=== PATIENT | female | born 1970 | race Caucasian/White ===

== ENCOUNTER 2019-08-23 17:19 | Emergency (ER) | payer MEDICARE, OTHER ==
[~2019-08-23] VITALS: Ht 162.6 cm; Wt 63.6 kg
[2019-08-23 17:57] LABS: EOS % 0.1 % (1.0-5.0); HEMATOCRIT 41.9 % (37.0-47.0); HEMOGLOBIN 13.9 g/dL (12.5-16.0); LYMPH# 1.4 (1.50-4.00); MEAN CELL VOLUME 91 fl (78-100); MEAN CORPUSCULAR HEMOGLOBIN 30 pg (27-31); MEAN CORPUSCULAR HGB CONC 33 g/dL (33-37); MONO # 0.8 (0.20-0.80); NEU # 7.5 (1.40-6.50); PLATELET COUNT 268 K/mm3 (130-400); RED BLOOD COUNT 4.61 M/mm3 (4.10-5.30); RED CELL DISTRIBUTION WIDTH 13.2 % (11.5-14.5); WHITE BLOOD COUNT 9.8 K/mm3 (4.8-10.8)
[2019-08-23 18:04] LABS: ALBUMIN 4.4 g/dL (3.5-5.0)
[2019-08-23 18:05] LABS: POTASSIUM 4.7 mmol/L (3.5-5.1)
[2019-08-23 18:06] LABS: CALCIUM 9.6 mg/dL (8.3-10.5)
[2019-08-23 18:07] LABS: TOTAL PROTEIN 7.2 g/dL (6.4-8.3)
[2019-08-23 18:09] LABS: TOTAL BILIRUBIN 0.5 mg/dL (0.2-1.2)
[2019-08-23 18:37] LABS: CKMB ISOENZYME 3.2 ng/mL (0.0-3.5)
[2019-08-23 18:46] LABS: URINE APPEARANCE CLEAR; URINE BILIRUBIN NEGATIVE (NEGATIVE); URINE BLOOD NEGATIVE (NEGATIVE); URINE COLOR YELLOW; URINE GLUCOSE NEGATIVE (NEGATIVE); URINE KETONE NEGATIVE (NEGATIVE); URINE LEUKOCYTE ESTERASE NEGATIVE (NEGATIVE); URINE NITRATE NEGATIVE (NEGATIVE); URINE PROTEIN(semi-quant) NEGATIVE (NEGATIVE); URINE UROBILINOGEN NORMAL (NORMAL); URINE WBC 0-1 /hpf (0-3)
[2019-08-23 20:25] VITALS: BP 125/68
== END 2019-08-23 20:25 | disposition home or self-care (01) ==
LOC: ED 17:19
PROVIDERS: Nurse Practitioner Family
DX: E86.9 Volume depletion, unspecified (principal); M62.838 Other muscle spasm
CPT/HCPCS: J7120